=== PATIENT | male | born 1935 | race Caucasian/White ===

== ENCOUNTER 2024-02-22 17:26 | Inpatient (IN) | payer OTHER ==
[~2024-02-22] VITALS: Ht 157.5 cm; Wt 61.7 kg
[2024-02-22] MEDS: IV NS 0.9% 1,000 ML BAG IV ONE (18:05)
[2024-02-22 18:11] LABS: BASOPHILS # (AUTO) 0.1 K/uL (0.0-0.2); BASOPHILS % (AUTO) 0.7 % (0.0-2.0); EOSINOPHILS # (AUTO) 0.2 K/uL (0.0-0.7); EOSINOPHILS % (AUTO) 1.3 % (0.0-6.0); HEMATOCRIT 41 % (39-51); HEMOGLOBIN 14.1 g/dL (13.5-17.5); LYMPHOCYTES # (AUTO) 1.8 K/uL (0.8-4.8); LYMPHOCYTES % (AUTO) 14.7 % (20.0-44.0); MEAN CORPUSCULAR HEMOGLOBIN 30 PG (26.0-33.0); MEAN CORPUSCULAR HGB CONC 34 g/dl (31.0-36.0); MEAN CORPUSCULAR VOLUME 87 fL (80-96); MONOCYTES # (AUTO) 1.1 K/uL (0.1-1.30); MONOCYTES % (AUTO) 8.8 % (2.0-12.0); NEUTROPHILS # (AUTO) 9.4 K/uL (1.8-8.9); NEUTROPHILS % (AUTO) 74.5 % (43.0-81.0); PLATELET COUNT (AUTO) 176 K/uL (150-450); RED BLOOD CELL COUNT(AUTO) 4.74 MIL/uL (4.5-6.0); RED CELL DISTRIBUTION WIDTH 14.1 % (11.5-15.0); WHITE BLOOD COUNT (AUTO) 12.5 K/uL (4.3-11.0)
[2024-02-22 18:33] LABS: CALCIUM, SERUM 10.2 mg/dL (8.5-10.1); CARBON DIOXIDE 31 mmol/L (21-32); CHLORIDE 107 mmol/L (98-107); CREATININE 0.9 mg/dL (0.6-1.3); GLUCOSE 119 mg/dL (74-106); POTASSIUM 4.2 mmol/L (3.5-5.1); SODIUM SERUM 139 mmol/L (136-145); UREA NITROGEN, BLOOD 26 mg/dL (7-18)
[2024-02-22] MEDS ORDERED: IOHEXOL-300 100 ML VIAL IV ONE (18:37)
[2024-02-22] MEDS ORDERED: IV NS 0.9% 250 ML IV ONE (18:37)
[2024-02-22 18:39] LABS: ALANINE AMINOTRANSFERASE 15 U/L (12-78); ALBUMIN 3.2 g/dL (3.4-5.0); ALKALINE PHOSPHATASE 109 U/L (46-116); ASPARTATE AMINOTRANSFERASE 8 U/L (15-37); BILIRUBIN,DIRECT 0.1 mg/dL (0.0-0.2); BILIRUBIN,TOTAL 0.4 mg/dL (0.2-1.0); TOTAL PROTEIN, SERUM 6.6 g/dL (6.4-8.2)
[2024-02-22] MEDS ORDERED: MINERAL OIL 133 ML (PYXIS) 1 EA ENEMA RC ONE (19:25)
[2024-02-22] MEDS ORDERED: KETOROLAC TROMETHAMINE 15 MG/ML VIAL ONE (19:25)
[2024-02-22] MEDS: KETOROLAC TROMETHAMINE 15 MG/ML VIAL IV ONE (19:30)
[2024-02-22] MEDS ORDERED: CLOT15CR5 TP (19:48)
[2024-02-22] MEDS ORDERED: ATOR20TA PO (19:48)
[2024-02-22] MEDS ORDERED: NA P133E RC (19:48)
[2024-02-22] MEDS ORDERED: LIDO30AD10 TP (19:48)
[2024-02-22] MEDS ORDERED: MAGN400T30 PO (19:48)
[2024-02-22] MEDS ORDERED: DOCU100C36 PO (19:48)
[2024-02-22] MEDS ORDERED: ASPI-1169 PO (19:48)
[2024-02-22] MEDS ORDERED: PROC25SU29 RC (19:48)
[2024-02-22] MEDS ORDERED: CRAN300T PO (19:48)
[2024-02-22] MEDS ORDERED: NITR0.4T48 SL (19:48)
[2024-02-22] MEDS ORDERED: TRAM50TA PO (19:48)
[2024-02-22] MEDS ORDERED: CARB15DR56 EACHEYE (19:48)
[2024-02-22] MEDS ORDERED: POLY17PO4 PO (19:48)
[2024-02-22] MEDS ORDERED: BISA10SU11 RC (19:48)
[2024-02-22] MEDS ORDERED: MAGN400O6 PO (19:48)
[2024-02-22] MEDS ORDERED: CYAN500T9 PO (19:48)
[2024-02-22] MEDS ORDERED: TAMS-12 PO (19:48)
[2024-02-22] MEDS: MINERAL OIL 133 ML (PYXIS) 1 EA ENEMA RC ONE (19:48)
[2024-02-22] MEDS ORDERED: ONDA-97 PO (19:48)
[2024-02-22] MEDS ORDERED: MULT-213 PO (19:48)
[2024-02-22] MEDS ORDERED: ACET325T53 PO (19:48)
[2024-02-22] MEDS ORDERED: LOSA25TA27 PO (19:48)
[2024-02-22] MEDS ORDERED: AMLO-212 PO (19:48)
[2024-02-22] MEDS ORDERED: LEVO50TA8 PO (19:48)
[2024-02-22] MEDS ORDERED: ACETAMINOPHEN 325 MG TABLET PO PRN (23:00)
[2024-02-22] MEDS ORDERED: Z GUARD REMEDY 4 OZ OINT TP PRN (23:00)
[2024-02-22] MEDS ORDERED: TRAMADOL HCL 50 MG TABLET PO PRN (23:00)
[2024-02-22] MEDS ORDERED: ONDANSETRON HCL/PF 4 MG/2 ML VIAL IVP PRN (23:00)
[2024-02-22] MEDS ORDERED: DEXTROSE 50%-WATER 50 ML DISP.SYRIN IV PRN (23:00)
[2024-02-22] MEDS: BISACODYL SUPP (10 MG) 10 MG/SUPP.RECT SUPP.RECT RC SCH (23:39)
[2024-02-22] MEDS: ENOXAPARIN SODIUM 40 MG/0.4 ML DISP.SYRIN SQ SCH (23:40)
[2024-02-23 00:06] VITALS: BP 143/77; TEMP 98.1; O2SAT 96
[2024-02-23] MEDS: TRAMADOL HCL 50 MG TABLET PO PRN (05:40)
[2024-02-23] MEDS: BLOOD SUGAR DIAGNOSTIC 1 EACH STRIP IN SCH (06:33)
[2024-02-23 06:34] LABS: BASOPHILS % (AUTO) 0.4 % (0.0-2.0); EOSINOPHILS # (AUTO) 0.2 K/uL (0.0-0.7); EOSINOPHILS % (AUTO) 2.6 % (0.0-6.0); HEMATOCRIT 42 % (39-51); HEMOGLOBIN 14.1 g/dL (13.5-17.5); LYMPHOCYTES # (AUTO) 2.3 K/uL (0.8-4.8); LYMPHOCYTES % (AUTO) 24.5 % (20.0-44.0); MEAN CORPUSCULAR HEMOGLOBIN 29 PG (26.0-33.0); MEAN CORPUSCULAR HGB CONC 34 g/dl (31.0-36.0); MEAN CORPUSCULAR VOLUME 87 fL (80-96); MONOCYTES % (AUTO) 10.4 % (2.0-12.0); NEUTROPHILS # (AUTO) 5.7 K/uL (1.8-8.9); NEUTROPHILS % (AUTO) 62.1 % (43.0-81.0); PLATELET COUNT (AUTO) 172 K/uL (150-450); RED BLOOD CELL COUNT(AUTO) 4.78 MIL/uL (4.5-6.0); RED CELL DISTRIBUTION WIDTH 13.8 % (11.5-15.0); WHITE BLOOD COUNT (AUTO) 9.2 K/uL (4.3-11.0)
[2024-02-23] MEDS: INSULIN REGULAR, HUMAN 100 UNIT/ML 3 ML VIAL SQ PRN (06:47)
[2024-02-23 07:06] LABS: CALCIUM, SERUM 9.9 mg/dL (8.5-10.1); CARBON DIOXIDE 25 mmol/L (21-32); CHLORIDE 105 mmol/L (98-107); CREATININE 0.9 mg/dL (0.6-1.3); GLUCOSE 97 mg/dL (74-106); MAGNESIUM 2.3 mg/dL (1.8-2.4); PHOSPHORUS 2.7 mg/dL (2.5-4.9); POTASSIUM 3.6 mmol/L (3.5-5.1); SODIUM SERUM 137 mmol/L (136-145); UREA NITROGEN, BLOOD 23 mg/dL (7-18)
[2024-02-23 08:00] VITALS: BP 157/73; TEMP 97.7; O2SAT 97
[2024-02-23] MEDS ORDERED: LACTULOSE 10 G/15 ML UDC (PYXIS) PO ONE (08:00)
[2024-02-23] MEDS ORDERED: SENNOSIDES 8.6 MG TABLET PO PRN (08:00)
[2024-02-23] MEDS ORDERED: POLYETHYLENE GLYCOL 3350 17 GM POWD.PACK PO PRN (08:00)
[2024-02-23] MEDS: LIDOCAINE 5% (PATCH) 1 EA PATCH TP SCH (08:24)
[2024-02-23] MEDS: CYANOCOBALAMIN 500 MCG TABLET PO SCH (08:25)
[2024-02-23] MEDS: PANTOPRAZOLE 40 MG TABLET.DR PO SCH (08:25)
[2024-02-23] MEDS: ASPIRIN 81 MG TAB.CHEW PO SCH (08:25)
[2024-02-23] MEDS: LEVOTHYROXINE SODIUM 50 MCG TABLET PO SCH (08:25)
[2024-02-23] MEDS: MULTIVIT W/MINERALS 1 TAB TABLET PO SCH (08:25)
[2024-02-23] MEDS: LOSARTAN POTASSIUM 25 MG TABLET PO SCH (08:25)
[2024-02-23] MEDS: POLYETHYLENE GLYCOL 3350 17 GM POWD.PACK PO SCH (08:26)
[2024-02-23] MEDS: AMLODIPINE BESYLATE 5 MG TABLET PO SCH (08:26)
[2024-02-23] MEDS: POLYVINYL ALCOHOL/POVIDONE 0.4 ML DROPERETTE EACHEYE SCH (08:32)
[2024-02-23] MEDS: CLOTRIMAZOLE/BETAMETASONE DIPROPIONATE 15 GM TUBE TP SCH (08:42)
[2024-02-23] MEDS ORDERED: Medication Not On Formulary EA (Multivitamins W-Minerals (Multivitamins With Minerals) 1 PO SCH (09:00)
[2024-02-23 16:00] VITALS: BP 141/68; TEMP 97.9; O2SAT 97
[2024-02-23] MEDS: TAMSULOSIN 0.4 MG CAP.SR.24H PO SCH (17:28)
[2024-02-23 20:00] VITALS: BP 138/65; TEMP 98.2
[2024-02-23 21:00] VITALS: BP 138/65; TEMP 98.2; O2SAT 98
[2024-02-23] MEDS: ATORVASTATIN 10 MG TABLET PO SCH (21:25)
[2024-02-23] MEDS: DOCUSATE SODIUM 100 MG CAPSULE PO SCH (21:25)
[2024-02-24 08:00] VITALS: BP 124/89; TEMP 98.5; O2SAT 96
[2024-02-24] MEDS: LACTULOSE 10 G/15 ML UDC (PYXIS) PO ONE (08:18)
[2024-02-24] MEDS: SENNOSIDES 8.6 MG TABLET PO SCH (09:12)
[2024-02-24 16:00] VITALS: BP 134/65; TEMP 98; O2SAT 98
[2024-02-24 20:00] VITALS: BP 119/53; TEMP 98.1; O2SAT 96
[2024-02-25 08:29] VITALS: BP 110/65; TEMP 98.1; O2SAT 98
[2024-02-25] MEDS: MINERAL OIL 133 ML (PYXIS) 1 EA ENEMA RC ONE ×2 (11:00→15:08)
[2024-02-25] MEDS: LACTULOSE 10 G/15 ML UDC (PYXIS) PO ONE ×2 (11:00→15:08)
[2024-02-25 16:01] VITALS: BP 152/69; TEMP 98.9; O2SAT 96
[2024-02-25] MEDS ORDERED: LACTULOSE 10 G/15 ML UDC (PYXIS) PO ONE (18:00)
[2024-02-25 20:24] VITALS: BP 107/56; TEMP 97.9; O2SAT 96
[2024-02-26 08:00] VITALS: BP 139/60; TEMP 97.6; O2SAT 97
[2024-02-26 08:31] VITALS: BP 139/60
== END 2024-02-26 15:30 | DRG 389 ==
LOC: ER 17:42 → MED 22:25
PROVIDERS: ADMIT Nurse Practitioner Family; ATTEND Nurse Practitioner Acute Care
PROC: 3E1H78Z Irrigation of Lower GI using Irrigating Substance, Via Natural or Artificial Opening (ICD-10-PCS; principal; 2024-02-22)
DX: K56.41 Fecal impaction (principal); E44.1 Mild protein-calorie malnutrition; K52.89 Other specified noninfective gastroenteritis and colitis; E78.5 Hyperlipidemia, unspecified; N40.0 Benign prostatic hyperplasia without lower urinary tract symptoms; D72.829 Elevated white blood cell count, unspecified; E86.0 Dehydration; R79.89 Other specified abnormal findings of blood chemistry; E88.09 Other disorders of plasma-protein metabolism, not elsewhere classified; E03.9 Hypothyroidism, unspecified; I10 Essential (primary) hypertension; Z79.82 Long term (current) use of aspirin; Z79.899 Other long term (current) drug therapy; E11.9 Type 2 diabetes mellitus without complications; G30.9 Alzheimer's disease, unspecified; F02.A0 Dementia in other diseases classified elsewhere, mild, without behavioral disturbance, psychotic disturbance, mood disturbance, and anxiety
CPT/HCPCS: 36415; 74018; 80048-TC; 80076-TC; 82962-TC; 83605-TC; 83735-TC; 84100-TC; 85025-TC; 87081-TC; 97110-TC; 97112-TC; 97116-TC; 97530-TC; G0378; J1650; J1815; J1885; J7030; J7050; Q9967